=== PATIENT | male | born 1955 | race Caucasian/White ===

== ENCOUNTER → 2023-09-09 06:33 | Day surgery (SDC) | payer BC, SELFPAY | LOC: GI 06:33 | PROVIDERS: ATTENDING PHYSICIAN Internal Medicine Gastroenterology; FAMILY PHYSICIAN Family Medicine | DX: K44.9 Diaphragmatic hernia without obstruction or gangrene (principal); K21.9 Gastro-esophageal reflux disease without esophagitis; K29.50 Unspecified chronic gastritis without bleeding | CPT/HCPCS: 43239; 88305; 88342 ==

== ENCOUNTER → 2023-10-08 10:24 | Outpatient (REF) | payer BC, SELFPAY ==
[2023-10-08 10:57] LABS: % Basophils 1.1 % (0-2); % Eosinophils 5.5 % (0-6); % Immature Granulocytes 0.5 % (0-0.5); % Lymphocytes 33.9 % (20.5-51.1); % Monocytes 9.2 % (1.7-9.3); % Neutrophils 49.8 % (42.2-75.2); Absolute Basophils 0.1 10^3/uL (0-0.2); Absolute Eosinophils 0.3 10^3/uL (0-0.7); Absolute Lymphocytes 2.1 10^3/uL (1.2-3.4); Absolute Monocytes 0.6 10^3/uL (0.1-0.6); Absolute Neutrophils 3.1 10^3/uL (1.4-6.5); Hematocrit 40.8 % (39.0-52.0); Hemoglobin 14.2 g/dL (13.0-18.0); Mean Corp Hgb Conc. 34.8 g/dL (33.0-37.0); Mean Corpuscular Hgb 30.5 pg (27.0-31.0); Mean Corpuscular Volume 87.6 fL (80.0-94.0); Mean Platelet Volume 9.2 fL (7.4-10.4); Nucleated Red Blood Cells % 0 % (-); Platelet Count 196 10^3/uL (130-400); Red Blood Cell Count 4.66 10^6/uL (4.70-6.10); Red Cell Dist. Width 12.2 % (11.5-14.5); White Blood Cell Count 6.2 10^3/uL (4.8-10.8)
[2023-10-08 11:29] LABS: ALT (SGPT) 35 U/L (0-50); AST (SGOT) 36 U/L (17-59); Albumin 4.2 g/dl (3.5-5.0); Alkaline Phosphatase 75 U/L (38-126); Blood Urea Nitrogen 17 mg/dl (9-20); Calcium 9.4 mg/dl (8.4-10.2); Carbon Dioxide 25 mmol/L (22-30); Chloride 105 mmol/L (98-107); Glucose 116 mg/dl (70-99); HDL Cholesterol 40 mg/dl; LDL Cholesterol, Calculated 58 mg/dl; Potassium 4.9 mmol/L (3.5-5.1); Sodium 135 mmol/L (135-145); Total Bilirubin 0.7 mg/dl (0.2-1.3); Total Cholesterol 115 mg/dl (50-199); Total Protein 6.9 g/dl (6.3-8.2); Triglyceride 85 mg/dl (10-149); Very Low Density Lipoprotein 17 mg/dl (0-30); eGFR > 60.00
[2023-10-08 11:58] LABS: PSA, Total - Screen 0.54 ng/ml (0.0-4.0); TSH 2.53 uIU/ml (0.47-4.68)
== END ==
LOC: REG 10:24
PROVIDERS: ATTENDING PHYSICIAN Family Medicine
DX: I25.10 Atherosclerotic heart disease of native coronary artery without angina pectoris (principal); E03.9 Hypothyroidism, unspecified; E78.5 Hyperlipidemia, unspecified; R53.83 Other fatigue; R97.20 Elevated prostate specific antigen [PSA]
CPT/HCPCS: 36415; 80053; 80061; 84443; 85025; G0103

== ENCOUNTER → 2024-02-07 10:50 | Outpatient (REF) | payer BC, SELFPAY ==
[2024-02-07 12:27] LABS: % Eosinophils 2.2 % (0-6); % Immature Granulocytes 0.4 % (0-0.5); % Lymphocytes 24.1 % (20.5-51.1); % Monocytes 8.2 % (1.7-9.3); % Neutrophils 64.1 % (42.2-75.2); Absolute Basophils 0.1 10^3/uL (0-0.2); Absolute Eosinophils 0.2 10^3/uL (0-0.7); Absolute Lymphocytes 1.6 10^3/uL (1.2-3.4); Absolute Monocytes 0.6 10^3/uL (0.1-0.6); Absolute Neutrophils 4.3 10^3/uL (1.4-6.5); Hematocrit 38.2 % (39.0-52.0); Hemoglobin 13.6 g/dL (13.0-18.0); Mean Corp Hgb Conc. 35.6 g/dL (33.0-37.0); Mean Corpuscular Hgb 30.2 pg (27.0-31.0); Mean Corpuscular Volume 84.9 fL (80.0-94.0); Mean Platelet Volume 9.9 fL (7.4-10.4); Nucleated Red Blood Cells % 0 % (-); Platelet Count 229 10^3/uL (130-400); Red Cell Dist. Width 11.9 % (11.5-14.5); White Blood Cell Count 6.7 10^3/uL (4.8-10.8)
[2024-02-07 12:44] LABS: ALT (SGPT) 40 U/L (0-50); AST (SGOT) 34 U/L (17-59); Albumin 4.1 g/dl (3.5-5.0); Alkaline Phosphatase 81 U/L (38-126); Blood Urea Nitrogen 20 mg/dl (9-20); Calcium 9.1 mg/dl (8.4-10.2); Carbon Dioxide 21 mmol/L (22-30); Chloride 105 mmol/L (98-107); Glucose 99 mg/dl (70-99); HDL Cholesterol 39 mg/dl; LDL Cholesterol, Calculated 57 mg/dl; Potassium 4.8 mmol/L (3.5-5.1); Sodium 134 mmol/L (135-145); Total Bilirubin 0.5 mg/dl (0.2-1.3); Total Cholesterol 112 mg/dl (50-199); Total Protein 6.8 g/dl (6.3-8.2); Triglyceride 84 mg/dl (10-149); Very Low Density Lipoprotein 16 mg/dl (0-30); eGFR > 60.00
[2024-02-07 12:52] LABS: Glycohemoglobin (HgbA1c) 5.8 % (4.0-5.6)
[2024-02-07 13:56] LABS: PSA, Total - Screen 0.41 ng/ml (0.0-4.0); TSH 1.76 uIU/ml (0.47-4.68)
== END ==
LOC: REG 10:50
PROVIDERS: ATTENDING PHYSICIAN Family Medicine
DX: I25.10 Atherosclerotic heart disease of native coronary artery without angina pectoris (principal); E78.5 Hyperlipidemia, unspecified; E03.9 Hypothyroidism, unspecified; R73.01 Impaired fasting glucose; R97.20 Elevated prostate specific antigen [PSA]
CPT/HCPCS: 36415; 80053; 80061; 83036; 84443; 85025; G0103

== ENCOUNTER → 2024-04-20 12:47 | Outpatient (REF) | payer BC, SELFPAY | LOC: RAD 12:47 | PROVIDERS: ATTENDING PHYSICIAN Family Medicine | DX: M54.2 Cervicalgia (principal); G43.711 Chronic migraine without aura, intractable, with status migrainosus | CPT/HCPCS: 72125 ==

== ENCOUNTER → 2024-10-14 08:36 | Outpatient (REF) | payer BC, SELFPAY ==
[2024-10-14 09:59] LABS: PSA, Total - Screen 0.59 ng/ml (0.0-4.0); TSH 5.65 uIU/ml (0.47-4.68)
== END ==
LOC: REG 08:36
PROVIDERS: ATTENDING PHYSICIAN Family Medicine
DX: I25.10 Atherosclerotic heart disease of native coronary artery without angina pectoris (principal); E78.5 Hyperlipidemia, unspecified; R73.01 Impaired fasting glucose; R97.20 Elevated prostate specific antigen [PSA]; E03.9 Hypothyroidism, unspecified
CPT/HCPCS: 36415; 83036; 84443; G0103

== ENCOUNTER → 2024-11-03 13:32 | Outpatient (REF) | payer BC, SELFPAY ==
[2024-11-03 15:27] LABS: Amphetamines Negative (Negative); Barbiturates Negative (Negative); Benzodiazepines Negative (Negative); Buprenorphine Negative (Negative); Cocaine Negative (Negative); Marijuana Negative (Negative); Methadone Negative (Negative); Methamphetamines Negative (Negative); Opiates Negative (Negative); Phencyclidine Negative (Negative); Tricyclic Antidepressants Negative (Negative)
[2024-11-03 15:36] LABS: Hepatitis C Antibody Negative (Negative)
[2024-11-03 15:57] LABS: TSH 2.38 uIU/ml (0.47-4.68)
== END ==
LOC: REG 13:32
PROVIDERS: ATTENDING PHYSICIAN Family Medicine
DX: I25.10 Atherosclerotic heart disease of native coronary artery without angina pectoris (principal); G43.711 Chronic migraine without aura, intractable, with status migrainosus
CPT/HCPCS: 36415; 80306; 84153; 84443; 86803

== ENCOUNTER 2025-03-08 21:42 | Emergency (ER) | payer SELFPAY ==
[2025-03-08 23:32] VITALS: BP 144/62
[2025-03-08 23:33] VITALS: BMI 33.0
[2025-03-09] VITALS: BP 134/51
--- NOTE | 2025-03-09 00:20 | ED.GENMED ---
History of Present Illness
General
Chief Complaint: Headache
Source: patient
Exam Limitations: clinical condition
Time Seen by Provider: 03/08/25 23:31
Nursing documentation reviewed up to this point in time: agreed with
History of Present Illness
History of Present Illness:
Note:
CHIEF COMPLAINT(S)
Severe headache.
HISTORY OF PRESENT ILLNESS
The patient is a 69-year-old male with a history of meningitis in 2005, presenting with severe headaches since the diagnosis of meningitis. The patient states, 'I've got horrible headaches ever since.' The headaches are described as being
persistent, with management typically on his own until the pain escalates. The patient reports visiting the emergency department multiple times over the past 12 years for similar symptoms, with the last visit being approximately a year and a half
ago. He describes this episode as moderate to severe' noting that his 'head always hurts' but usually manages until 'the pain just gets out of control.' Past treatments have included fentanyl prescribed by a family medicine doctor, but this
medication is not given regularly. The patient has seen pain management in the past but not recently.
ALLERGIES
No known drug allergies.
REVIEW OF SYSTEMS
- Neurological: Severe headaches described as persistent and worsening.
- Pain: Chronic headaches with this episode being described as one of the worst.
PHYSICAL EXAM
General: Alert, no acute distress.
Skin: Warm, dry.
Head: Normocephalic, atraumatic.
Neck: Supple, trachea midline.
Eye, Ears, Nose, Mouth, and Throat: Oral mucosa moist.
Cardiovascular: Normal peripheral perfusion, No edema.
Respiratory: Respirations are non-labored.
Gastrointestinal: Abdomen nondistended
Back: Normal range of motion, Normal alignment.
Musculoskeletal: Normal ROM, normal strength.
Neurological: Alert and oriented to person, place, time, and situation. No focal neurological deficit observed.
Psychiatric: Cooperative, appropriate mood & affect.
PROBLEM LIST
- Chronic headaches post-meningitis
- Acute exacerbation of chronic headache
PLAN
Administer headache cocktail consisting of Toradol and Reglan. An intravenous line will be started for medication administration. Ensure the patient has a ride home post-treatment.
DIFFERENTIAL DIAGNOSIS
The Differential Diagnosis includes, in no particular order and is not limited to:
1. Tension-type headache
2. Chronic migraine
3. Medication-overuse headache
4. Cluster headache
5. Rebound headache
6. Post-meningitis headache syndrome
7. Temporal arteritis
8. Cervicogenic headache
9. Sinus headache
10. Neuralgia (e.g., trigeminal neuralgia)
Disposition:
SUMMARY OF ENCOUNTER
The patient is a 69-year-old male who presented to the emergency department with a severe headache. He has a history of chronic migraines post-meningitis. The patient reported this episode as one of the worst headaches he has experienced. Given his
symptom severity, a decision was made to administer a headache cocktail consisting of ketorolac and metoclopramide via an intravenous line. This treatment has been used in the past to manage his headaches, allowing for acute symptom relief.
ASSESSMENT
The patient is experiencing an acute exacerbation of chronic headache symptoms, likely due to post-meningitis headache syndrome.
EMERGENCY TREATMENTS ADMINISTERED
Toradol (ketorolac) and Reglan (metoclopramide) administered via IV line.
PLAN
Administer the headache cocktail as mentioned and monitor the patients response to treatment.
PATIENT EDUCATION AND COUNSELING
The patient was advised about the headache cocktail administered and its potential effects. They were educated on the need for consistent follow-up treatment and to contact healthcare providers if the symptoms worsen or fail to improve.
FOLLOW-UP INSTRUCTIONS
Follow-up with primary care and/or paint grinder for ongoing headache management.
MEDICATION RECONCILIATION
Administered intravenous Toradol (ketorolac) and Reglan (metoclopramide) during the visit.
MEDICAL DECISION MAKING
-Complexity of Data Reviewed: Chronic conditions affecting care include chronic headaches post-meningitis. Differential diagnosis is:
1. Tension-type headache
2. Chronic migraine
3. Medication-overuse headache
4. Cluster headache
5. Rebound headache
6. Post-meningitis headache syndrome
7. Temporal arteritis
8. Cervicogenic headache
9. Sinus headache
10. Neuralgia (e.g., trigeminal neuralgia)
-Data:
Category 1
Clinical information was based on the patients history of present illness and history of previous similar episodes.
-Risk:
Prescription medication was administered for acute symptom relief via IV in the emergency department.
DIAGNOSIS
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
- Acute exacerbation of chronic headache (ICD-10: G43.909)
Past History
Past History
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
ED Past Surgical History: Brain, Cardiac (Cardiac catheterization with a stent in 1995, Pacer/defibrillator ), Orthopedic (Right wrist surgery) and Other (Trigeminal neuralgia neurosurgical release with postop complications of spinal fluid leak
requiring surgical repair. Neuro brain stimulator. occipital stimulator placement then removal in 07/21)
Social History
Tobacco: Non-smoker
Alcohol: None
Drug: None
Personal:
Living: with family
Employment: Disabled
Family History
Family History: Diabetes and Other (Noncontributory)
Course
Orders/Labs/Results
Orders:
Orders
03/08/25 23:49
Cardiac Monitoring- Treatment ONCE
Complete Blood Count/With Diff Urgent
Comprehensive Metabolic Panel Urgent
Erythrocyte Sed Rate Urgent
PTT Urgent
Prothrombin Time Urgent
0.9% Sodium Chloride 1000 ml [Nss] 1,000 ml IV BOLUS
Dexamethasone Sod Phosphate [Decadron] 10 mg IV NOW STA
Diphenhydramine [Benadryl] 25 mg IV NOW STA
Metoclopramide [Reglan] 10 mg IV NOW STA
03/09/25 04:14
Ketorolac [Toradol] 15 mg IV NOW STA
Abnormal Lab Results
03/09/25
00:18
RBC 4.61 L 10^6/uL
(4.70-6.10)
Abs Immat Gran (auto) 0.2 H 10^3/uL
(0-0.05)
Absolute Monos (auto) 1.0 H 10^3/uL
(0.1-0.6)
Immature Gran % 1.6 H %
(0-0.5)
Monocytes % 11.1 H %
(1.7-9.3)
Chloride 108 H mmol/L
(98-107)
BUN 21 H mg/dl
(9-20)
Glucose 142 H mg/dl
(70-99)
03/09/25 00:18
03/09/25 00:18
Vital Signs
Initial and Last Documented VS:
Initial Vital Signs
Temp Pulse Resp Pulse Ox
97.9 F 61 18 93
03/08/25 21:46 03/08/25 21:46 03/08/25 21:46 03/08/25 21:46
Last Documented Vital Signs
Temp Pulse Resp BP Pulse Ox
97.9 F 53 18 138/60 99
03/08/25 21:46 03/09/25 06:00 03/09/25 06:00 03/09/25 04:00 03/09/25 06:00
*Radiology
Radiology exam reviewed: radiology read reviewed
*Pulse Oximetry
SaO2: 98
Oxygen Mode of Delivery: Room air
Patient hypoxic: no
*Critical Care Note
Total Time (30-74mins, 75-104mins- exclusive of procedures): Not Applicable
Update Note
Update Note:
12:21 AM-into see the patient. He is resting in the right lateral recumbent position. IV was started by nurses and patient is about to get his medications.
2:31 AM�patient still sleeping. In seemingly no acute distress
3:01 AM-patient resting comfortably in no acute distress
ED Attending Note
-
Portions of this chart may have been created with voice recognition software.� Occasional wrong word or��sound alike� substitutions may have occurred due to the inherent limitations of voice recognition software.
Discharge Plan
Departure
Patient Disposition: Home (Routine Discharge)
Date of Disposition: 03/09/25
Time of Disposition: 06:07
Patient with high blood pressure during this ER visit?: Yes
Condition: Good
Discharge Problem:
Headache, migraine, intractable
Instructions: Migraines (DC), Headache, Adult (DC), BLOOD PRESSURE
Prescriptions:
No Action
aspirin 325 MG tablet
325 mg PO HS
atorvastatin 80 MG tablet
80 mg PO HS
lisinopril 2.5 MG tablet
10 mg PO HS
fentanyl 25 mcg/hr Patch 72 Hour
1 patch transdermal Q72H Qty: 5 0RF
Patient Comments:
06/17/23-placed on left shoulder on 06/17/23
trazodone 100 mg Tablet
100 mg PO HS
sennosides [senna] 8.6 mg Tablet
8.6 mg PO BID
famotidine [Pepcid] 20 mg Tablet
20 mg PO BIDPRN PRN (Reason: gerd)
ezetimibe [Zetia] 10 mg Tablet
10 mg PO HS
metoprolol succinate [Toprol XL] 25 mg tablet extended release 24 hr
25 mg PO BID Qty: 60 1RF
Referrals:
David Platt MD [Active, Neurology]
UNKNOWN - PT NOT,INTERVIEWE [Family Provider]
Activity Restrictions/Additional Instructions:
Thank You for choosing [facility].
It was a pleasure meeting you and taking part in your care. We hope for your continued healing and wellness.
Please read discharge instructions in their entirety. However, they are for general education and may not describe your exact diagnosis at discharge. Information on your ER visit and medical conditions were discussed with you along with appropriate
follow up information...
If indicated, please take your medications as instructed and indicated on discharge paperwork.
Please schedule a follow up appointment as directed. Call to schedule an appointment
Please return to the emergency department with ANY change in, persisting, or worsening of symptoms. If any of your symptoms do not improve, or persist, or become more severe within 6-12 hours, please return to the emergency department for further
care.
Please return to the emergency department if you develop a headache, neck pain/stiffness, fever greater than 100.4F, chest pain, shortness of breath, persistent nausea, vomiting, slurred speech, difficulty walking, numbness/tingling, weakness, signs
of infection or any other symptoms that are worrisome to you.
If you have any questions or concerns please do not hesitate to call the Hospital at or E-mail me directly at [email or web address]
Interventions
Interventions:
*Risk Screen - Suicide Last Done: 03/08/25 21:50
*General Assessment Last Done: 03/08/25 21:49
*Neglect/Abuse Screening Last Done: 03/08/25 21:50
*ED- Fall Risk Assessment Last Done: 03/08/25 23:36
*ED COVID-19 Vaccine History Last Done: 03/08/25 23:36
ED- Neurological Assessment Last Done: 03/08/25 23:33
Discharge Date and Time
Print Language: HONG KONGER
[2025-03-09] MEDS: NSS 1000 IV (00:23)
[2025-03-09] MEDS: DECADRON 10 MG IV (00:24)
[2025-03-09] MEDS: REGLAN 10 MG IV (00:24)
[2025-03-09] MEDS: BENADRYL 25 MG IV (00:24)
[2025-03-09 00:39] LABS: Hematocrit 39.8 % (39.0-52.0); Hemoglobin 14.0 g/dL (13.0-18.0); INR 1.02; Mean Corp Hgb Conc. 35.2 g/dL (33.0-37.0); Mean Corpuscular Volume 86.3 fL (80.0-94.0); Nucleated Red Blood Cells % 0 % (-); PT 13.9 Sec (11.4-14.6); Platelet Count 241 10^3/uL (130-400); Red Cell Dist. Width 12.3 % (11.5-14.5)
[2025-03-09 00:40] LABS: APTT 28.4 Sec (23.4-35.0)
[2025-03-09 00:43] LABS: ALT (SGPT) 38 U/L (0-50); AST (SGOT) 38 U/L (17-59); Albumin 4.2 g/dl (3.5-5.0); Alkaline Phosphatase 64 U/L (38-126); Blood Urea Nitrogen 21 mg/dl (9-20); Calcium 8.9 mg/dl (8.4-10.2); Carbon Dioxide 24 mmol/L (22-30); Chloride 108 mmol/L (98-107); Estimated Creatinine Clearance 112 ml/min; Glucose 142 mg/dl (70-99); Potassium 4.3 mmol/L (3.5-5.1); Sodium 138 mmol/L (135-145); Total Protein 7.0 g/dl (6.3-8.2); eGFR > 60.00
[2025-03-09 02:00] VITALS: BP 119/55
[2025-03-09 03:00] VITALS: BP 125/55
[2025-03-09 04:00] VITALS: BP 138/60
[2025-03-09] MEDS: TORADOL 15 MG IV (04:24)
== END 2025-03-09 06:39 | disposition home or self-care (01) ==
LOC: EMR 21:42
PROVIDERS: EMERGENCY PHYSICIAN Student in an Organized Health Care Education/Training Program
DX: G43.919 Migraine, unspecified, intractable, without status migrainosus (principal); E78.00 Pure hypercholesterolemia, unspecified; I25.10 Atherosclerotic heart disease of native coronary artery without angina pectoris; I10 Essential (primary) hypertension; F11.20 Opioid dependence, uncomplicated; Z86.74 Personal history of sudden cardiac arrest; Z95.5 Presence of coronary angioplasty implant and graft
CPT/HCPCS: 96374; 96375; 96361; 99284; 80053; 85025; 85610; 85652; 85730

== ENCOUNTER 2025-03-27 15:36 | Emergency (ER) | payer MEDICARE, SELFPAY ==
[2025-03-27 15:43] VITALS: BP 159/78
[2025-03-27 16:08] LABS: Hematocrit 43.0 % (39.0-52.0); Hemoglobin 14.8 g/dL (13.0-18.0); Mean Corp Hgb Conc. 34.4 g/dL (33.0-37.0); Mean Corpuscular Volume 87.6 fL (80.0-94.0); Nucleated Red Blood Cells % 0 % (-); Platelet Count 234 10^3/uL (130-400); Red Cell Dist. Width 12.7 % (11.5-14.5)
[2025-03-27 16:20] LABS: ALT (SGPT) 51 U/L (0-50); AST (SGOT) 60 U/L (17-59); Albumin 4.7 g/dl (3.5-5.0); Alkaline Phosphatase 70 U/L (38-126); Blood Urea Nitrogen 21 mg/dl (9-20); Calcium 9.3 mg/dl (8.4-10.2); Carbon Dioxide 23 mmol/L (22-30); Chloride 105 mmol/L (98-107); Glucose 164 mg/dl (70-99); Potassium 4.2 mmol/L (3.5-5.1); Sodium 136 mmol/L (135-145); Total Protein 7.9 g/dl (6.3-8.2); eGFR > 60.00
--- NOTE | 2025-03-27 18:57 | ED.GENMED ---
History of Present Illness
General
Chief Complaint: Headache
Time Seen by Provider: 03/27/25 18:52
History of Present Illness
History of Present Illness:
FOCUSED PAST MEDICAL HISTORY
- Chronic headache over the past 19 years since diagnosis of meningitis in 2005
REVIEW OF OLD RECORDS
- I reviewed records, it is documented that the patient has a history of meningitis in 2016 and has been having severe headache since that time. It. He was given Toradol and Reglan last time he was in the ER
At about 6:55 PM, I signed up to see the patient, I walked in the room and the patient was gone. I did not participate care for this patient other than reviewing his chart and labs today.
RADIOLOGY
-
EKG
-
LABS
- CBC normal, chemistries unremarkable
UPDATE
-
Past History
Past History
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
ED Past Surgical History: Brain, Cardiac (Cardiac catheterization with a stent in 1995, Pacer/defibrillator ), Orthopedic (Right wrist surgery) and Other (Trigeminal neuralgia neurosurgical release with postop complications of spinal fluid leak
requiring surgical repair. Neuro brain stimulator. occipital stimulator placement then removal in 07/21)
Social History
Tobacco: Non-smoker
Alcohol: None
Drug: None
Personal:
Living: with family
Employment: Disabled
Family History
Family History: Diabetes and Other (Noncontributory)
Phy Exam
Physical Exam
Physical Exam:
Patient did not receive a physical examination as he left before my evaluation
Course
Orders/Labs/Results
Orders:
Orders
03/27/25 15:57
Complete Blood Count/With Diff Urgent
Comprehensive Metabolic Panel Urgent
Abnormal Lab Results
03/27/25
15:57
Abs Immat Gran (auto) 0.1 H 10^3/uL
(0-0.05)
Immature Gran % 0.9 H %
(0-0.5)
BUN 21 H mg/dl
(9-20)
Glucose 164 H mg/dl
(70-99)
AST 60 H U/L
(17-59)
ALT 51 H U/L
(0-50)
03/27/25 15:57
03/27/25 15:57
Vital Signs
Initial and Last Documented VS:
Initial Vital Signs
Temp Pulse Resp BP Pulse Ox
36.9 C 74 18 159/78 98
03/27/25 15:43 03/27/25 15:43 03/27/25 15:43 03/27/25 15:43 03/27/25 15:43
Last Documented Vital Signs
Temp Pulse Resp BP Pulse Ox
36.9 C 74 18 159/78 98
03/27/25 15:43 03/27/25 15:43 03/27/25 15:43 03/27/25 15:43 03/27/25 15:43
*Pulse Oximetry
SaO2: 98
Oxygen Mode of Delivery: Room air
Patient hypoxic: no
*Critical Care Note
Total Time (30-74mins, 75-104mins- exclusive of procedures): Not Applicable
ED Attending Note
-
Portions of this chart may have been created with voice recognition software.� Occasional wrong word or��sound alike� substitutions may have occurred due to the inherent limitations of voice recognition software.
Discharge Plan
Departure
Prescriptions:
No Action
aspirin 325 MG tablet
325 mg PO HS
atorvastatin 80 MG tablet
80 mg PO HS
lisinopril 2.5 MG tablet
10 mg PO HS
fentanyl 25 mcg/hr Patch 72 Hour
1 patch transdermal Q72H Qty: 5 0RF
Patient Comments:
06/17/23-placed on left shoulder on 06/17/23
trazodone 100 mg Tablet
100 mg PO HS
sennosides [senna] 8.6 mg Tablet
8.6 mg PO BID
famotidine [Pepcid] 20 mg Tablet
20 mg PO BIDPRN PRN (Reason: gerd)
ezetimibe [Zetia] 10 mg Tablet
10 mg PO HS
metoprolol succinate [Toprol XL] 25 mg tablet extended release 24 hr
25 mg PO BID Qty: 60 1RF
Referrals:
UNKNOWN - PT DOES,NOT KNOW [Family Provider]
Interventions
Interventions:
*Risk Screen - Suicide Last Done: 03/27/25 15:43
*General Assessment Last Done: 03/27/25 15:43
*Neglect/Abuse Screening Last Done: 03/27/25 15:43
Discharge Date and Time
Print Language: MALTESE
== END 2025-03-27 19:09 | disposition left against medical advice (07) ==
LOC: EMR 15:36
PROVIDERS: Emergency Medicine; EMERGENCY PHYSICIAN Emergency Medicine
DX: R51.9 Headache, unspecified (principal); E78.00 Pure hypercholesterolemia, unspecified; I10 Essential (primary) hypertension; I25.10 Atherosclerotic heart disease of native coronary artery without angina pectoris; I25.2 Old myocardial infarction; Z86.74 Personal history of sudden cardiac arrest; Z95.5 Presence of coronary angioplasty implant and graft; Z86.61 Personal history of infections of the central nervous system; Z53.21 Procedure and treatment not carried out due to patient leaving prior to being seen by health care provider
CPT/HCPCS: 80053; 85025